=== PATIENT | female | born 1995 | race Hispanic/Latino ===

== ENCOUNTER 2018-10-08 17:33 | Emergency (ER) | payer SELFPAY ==
[~2018-10-08] VITALS: Ht 160 cm; Wt 76.7 kg
[~2018-10-08 17:33] MED LIST: KEFLEX250 MG PO; TYLENOL # 31 EA PO
[2018-10-08] MEDS ORDERED: KETOROLAC TROMETHAMINE 30 MG/ML VIAL IV STA (17:51)
--- NOTE | 2018-10-08 17:55 | NUR ---
PT NOT WANTING ANY TESTING STARTED UNTIL SHE TALKS WITH REGISTRATION.
[2018-10-08] MEDS ORDERED: SODIUM CHLORIDE 0.9% 1000ML 1,000 ML IV SCH (18:00)
[2018-10-08] MEDS ORDERED: MECLIZINE HCL12.5 MG PO (18:47)
[2018-10-08] MEDS ORDERED: AUGMENTIN 875-1 EACH PO (18:47)
[2018-10-08] MEDS ORDERED: NAPROXEN250 MG PO (18:47)
[2018-10-08] MEDS ORDERED: FERROUS SULFAT324 MG PO (18:50)
[2018-10-08] MEDS ORDERED: SODIUM CHLORIDE 0.9% 1000ML 1,000 ML ONE (18:55)
[2018-10-08] MEDS ORDERED: KETOROLAC TROMETHAMINE 30 MG/ML VIAL ONE (18:56)
--- NOTE | 2018-10-08 19:11 | Diagnostic Imaging Report ---
EXAMINATION: CXR 2 VIEW - HOPD INDICATION: ^[id number] ^[id number] COMPARISON: None FINDINGS: PA and lateral views TUBES and LINES: None. LUNGS: Lungs are well inflated. There is no evidence of pneumonia or pulmonary edema. PLEURA: No pleural effusion or pneumothorax. HEART AND MEDIASTINUM: The cardiomediastinal silhouette is unremarkable. BONES AND SOFT TISSUES: No acute osseous lesion. Soft tissues are unremarkable. UPPER ABDOMEN: No free air under the diaphragm. IMPRESSION: No acute thoracic abnormality. No focal consolidation. Signed by: Dr. Mikhail Daily MD on 10/08/2018 7:08 PM
--- NOTE | 2018-10-08 19:24 | Diagnostic Imaging Report ---
History: Knee seen at, high blood pressure for one day. Comparison studies: None Technique: Axial images were obtained from the skull base to the vertex. Coronal and sagittal reconstructions obtained from the axial data. Dose modulation, iterative reconstruction, and/or weight based adjustment of the mA/kV was utilized to reduce the radiation dose to as low as reasonably achievable. Findings: Scalp/skull: No abnormalities. No fractures, blastic or lytic lesions. Extra-axial spaces: No masses. No fluid collections. Brain sulci: Appropriate for age. Ventricles: Normal in size and configuration. No hydrocephalus. Parenchyma: No abnormal densities. No masses, hemorrhage, acute or chronic cortical vascular insults. Sellar/suprasellar region: No abnormalities Craniocervical junction: Patent foramen magnum. No Chiari one malformation. IMPRESSION: No abnormalities . Signed by: DR Martell Fernández M.D. on 10/08/2018 7:20 PM
--- NOTE | 2018-10-08 19:30 | NUR ---
REPORT TO SERG NELSON
[2018-10-08] MEDS ORDERED: POTASSIUM CHLORIDE 20 MEQ TAB CR PO ONE (19:42)
[2018-10-08] MEDS ORDERED: POTASSIUM CHLORIDE 20 MEQ TAB CR PO NR (19:45)
== END 2018-10-08 20:17 | disposition home or self-care (01) ==
LOC: FSED 17:33
DX: R42 Dizziness and giddiness (principal); J01.00 Acute maxillary sinusitis, unspecified; E87.6 Hypokalemia; K52.9 Noninfective gastroenteritis and colitis, unspecified; I10 Essential (primary) hypertension; D50.9 Iron deficiency anemia, unspecified
CPT/HCPCS: 70450; 71046; 80053; 81003; 81025; 83518; 85025; 99284; J1885; J7030

== ENCOUNTER 2019-11-03 19:50 | Emergency (ER) | payer OTHER ==
[~2019-11-03] VITALS: Ht 160 cm; Wt 75.7 kg
[~2019-11-03 19:50] MED LIST changes: +AUGMENTIN 875-1 EACH PO; +FERROUS SULFAT324 MG PO; +MECLIZINE HCL12.5 MG PO; +NAPROXEN250 MG PO
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
--- NOTE | 2019-11-03 21:54 | Diagnostic Imaging Report ---
CT BRAIN [facility] HISTORY: Headache, dizziness, palpitations COMPARISON: Head CT 10/08/2018 TECHNIQUE: Noncontrast axial scans were obtained from skull base to the vertex. Coronal and sagittal reconstructions obtained from the axial data. One or more of the following dose reduction techniques were used: Automated exposure control, adjustment of the mA and/or kV according to patient size, and/or utilization of iterative reconstruction technique. DISCUSSION: Scalp/Skull: Unremarkable. Brain sulci: Appropriate for patient's age. Ventricles: Normal in size and configuration. No hydrocephalus. Extra-axial spaces: No masses or fluid collections. Parenchyma: No abnormal densities. No mass, hemorrhage, or large vascular territory acute infarct. Dural sinuses: No abnormal densities. Sellar/Suprasellar region: Intact. Skull base: Intact. Incidental findings: None. IMPRESSION: No intracranial abnormalities. Signed by: Dr. Sebastian Rubio M.D. on 11/03/2019 9:51 PM
--- NOTE | 2019-11-03 22:15 | Diagnostic Imaging Report ---
EXAMINATION: CXR 2 VIEW - HOPD INDICATION: ^chest pain ^[id number] ^[id number] ^N COMPARISON: None FINDINGS: TUBES and LINES: None. LUNGS: Lungs are well inflated. Lungs are clear. There is no evidence of pneumonia or pulmonary edema. PLEURA: No pleural effusion or pneumothorax. HEART AND MEDIASTINUM: The cardiomediastinal silhouette is unremarkable. BONES AND SOFT TISSUES: No acute osseous lesion. Soft tissues are unremarkable. UPPER ABDOMEN: No free air under the diaphragm. IMPRESSION: No acute thoracic radiographic abnormality. Signed by: Kyle Vasquez MD on 11/03/2019 10:11 PM
[2019-11-03] MEDS ORDERED: ATIVAN1 MG PO (22:25)
[2019-11-03 22:48] VITALS: BP 120/80
== END 2019-11-03 22:48 | disposition home or self-care (01) ==
LOC: FSED 20:15
DX: D56.3 Thalassemia minor (principal); R07.89 Other chest pain; R51 Headache; F41.9 Anxiety disorder, unspecified
CPT/HCPCS: 70450; 71046; 80048; 80076; 81003; 81025; 82553; 84484; 85025; 85379; 93005; 99284